=== PATIENT | female | born 1960 | race Caucasian/White ===

== ENCOUNTER → 2018-05-04 | Outpatient (CLI) | payer BC | LOC: RAD 15:21 | DX: E04.2 Nontoxic multinodular goiter (principal) ==

== ENCOUNTER 2018-07-03 20:56 | Observation (INO) | payer BC ==
[~2018-07-03] VITALS: Ht 167.6 cm; Wt 72.8 kg
[2018-07-03 21:42] LABS: HEMOGLOBIN 14.5 g/dL (12.5-16.0); MEAN CELL VOLUME 89 fl (78-100); MEAN CORPUSCULAR HEMOGLOBIN 31 pg (27-31); MEAN CORPUSCULAR HGB CONC 35 g/dL (33-37); MEAN PLATELET VOLUME 11.1 fl (7.4-10.4); PLATELET COUNT 176 K/mm3 (130-400); RED BLOOD COUNT 4.73 M/mm3 (4.10-5.30); RED CELL DISTRIBUTION WIDTH 12.7 % (11.5-14.5); WHITE BLOOD COUNT 4.9 K/mm3 (4.8-10.8)
[2018-07-03 21:49] LABS: ALBUMIN 3.8 g/dL (3.5-5.0); CALCIUM 9.5 mg/dL (8.4-10.2); POTASSIUM 3.9 mmol/L (3.6-5.0); TOTAL PROTEIN 6.5 g/dL (6.3-8.2)
[2018-07-03 21:56] LABS: BAND 3 % (0-10); LYMPHOCYTE 9 % (20-51); MONOCYTE 3 % (3-10); NEUTROPHILS 85 % (42-75)
[2018-07-03 22:22] LABS: URINE APPEARANCE CLEAR; URINE BILIRUBIN NEGATIVE (NEGATIVE); URINE BLOOD 250 ery/uL (NEGATIVE); URINE COLOR YELLOW; URINE GLUCOSE NEGATIVE (NEGATIVE); URINE KETONE NEGATIVE (NEGATIVE); URINE LEUKOCYTE ESTERASE TRACE (NEGATIVE); URINE MUCUS PRESENT (NOT PRESENT); URINE NITRATE NEGATIVE (NEGATIVE); URINE PROTEIN(semi-quant) TRACE mg/dL (NEGATIVE); URINE UROBILINOGEN NORMAL (NORMAL)
[2018-07-03] MEDS ORDERED: PROTONIX TR40 M1 PO (22:26)
[2018-07-03] MEDS ORDERED: MYSOLINE50 M1 PO (22:26)
--- NOTE | 2018-07-04 02:30 | NUR ---
PATIENT ADMITTED TO OBSERVATION ROOM 306 AT THIS TIME. PATIENT TRANSFERS WITH STANDBY ASSIST ONLY AND HAS BATHROOM PRIVILAGES ORDERED. PATIENT DOES NOT APPEAR TO BE IN ANY OBVIOUS DISTRESS AT THIS TIME. PATIENT'S REMAINS AT BEDSIDE. PATIENT'S IV LEFT IN PLACE FOR NEW CONTINUOUS AND PRN MEDICATION ORDERS.
[2018-07-04 03:02] VITALS: BP 95/54
[2018-07-04 06:16] VITALS: BP 99/47
[2018-07-04 08:04] LABS: EOS % 0.5 % (1.0-5.0); HEMATOCRIT 39.6 % (37.0-47.0); HEMOGLOBIN 13.5 g/dL (12.5-16.0); MEAN CELL VOLUME 90 fl (78-100); MEAN CORPUSCULAR HEMOGLOBIN 31 pg (27-31); MEAN CORPUSCULAR HGB CONC 34 g/dL (33-37); MEAN PLATELET VOLUME 11.1 fl (7.4-10.4); MONO # 0.2 (0.20-0.80); NEU # 1.5 (1.40-6.50); PLATELET COUNT 147 K/mm3 (130-400); RED BLOOD COUNT 4.41 M/mm3 (4.10-5.30); RED CELL DISTRIBUTION WIDTH 12.8 % (11.5-14.5)
[2018-07-04 08:16] LABS: LYMPH# 0.3 (1.50-4.00)
--- NOTE | 2018-07-04 08:23 | NUR ---
REPORT GIVEN TO RIP Moraes RN.
[2018-07-04 08:27] LABS: ALBUMIN 3.3 g/dL (3.5-5.0); CALCIUM 8.8 mg/dL (8.4-10.2); POTASSIUM 4.5 mmol/L (3.6-5.0); TOTAL PROTEIN 5.8 g/dL (6.3-8.2)
--- NOTE | 2018-07-04 09:54 | NUR ---
PT FOUND RESTING IN BED. NS INFUSING IN RTAC. STATES HER STOMACH FEELS A LITTLE FLU LIKE BUT DENIES THE PAIN SHE WAS HAVING IN LOWER ABDOMIN. STATES SHE ATE JELLO FOR BREAKFAST AND TOLERATED IT WELL. HAS NOT BEEN UP TO THE BATHROOM THIS MORNING. NO OTHER NEEDS NOTED AT THIS TIME. WILL CONTINUE TO MONITOR.
[2018-07-04] MEDS ORDERED: PANTOPRAZOLE SO40 MG PO (10:50)
--- NOTE | 2018-07-04 11:00 | NUR ---
DISCHARGE INSTRUCTIONS DISCUSSED WITH PT, PT VERBALIZES UNDERSTANDING. IV DC'D WITHOUT DIFFICULTY. PT DENIES ANY OTHER NEEDS, DC'D HOME VIA AMBULATION.
[2018-07-04 11:11] VITALS: BP 115/60
== END 2018-07-04 11:30 | disposition home or self-care (01) ==
LOC: ED 20:56 → MED/SURG 07-04 02:21
PROVIDERS: ADMIT Family Medicine
DX: R10.13 Epigastric pain (principal); R74.8 Abnormal levels of other serum enzymes; R79.89 Other specified abnormal findings of blood chemistry; G25.0 Essential tremor; K21.9 Gastro-esophageal reflux disease without esophagitis; F17.200 Nicotine dependence, unspecified, uncomplicated; Z87.19 Personal history of other diseases of the digestive system; K44.9 Diaphragmatic hernia without obstruction or gangrene; R31.29 Other microscopic hematuria
CPT/HCPCS: C9113; G0378; J0595; J1885; J3010; J3490; J7030

== ENCOUNTER → 2018-07-08 | Outpatient (CLI) | payer BC ==
[2018-07-04 11:11] VITALS: BP 115/60
[~2018-07-08] MED LIST: MYSOLINE50 M1 PO; PANTOPRAZOLE SO40 MG PO; PROTONIX TR40 M1 PO
[2018-07-08 09:26] LABS: EOS # 0.1 (0.04-0.40); EOS % 1.8 % (1.0-5.0); HEMATOCRIT 42.8 % (37.0-47.0); HEMOGLOBIN 14.6 g/dL (12.5-16.0); LYMPH# 1.1 (1.50-4.00); MEAN CELL VOLUME 89 fl (78-100); MEAN CORPUSCULAR HEMOGLOBIN 31 pg (27-31); MEAN CORPUSCULAR HGB CONC 34 g/dL (33-37); MEAN PLATELET VOLUME 11.1 fl (7.4-10.4); MONO # 0.3 (0.20-0.80); NEU # 1.9 (1.40-6.50); PLATELET COUNT 209 K/mm3 (130-400); RED BLOOD COUNT 4.79 M/mm3 (4.10-5.30); RED CELL DISTRIBUTION WIDTH 12.8 % (11.5-14.5); WHITE BLOOD COUNT 3.3 K/mm3 (4.8-10.8)
[2018-07-08 09:57] LABS: PROTHROMBIN TIME 9.3 SECONDS (9.0-12.0)
[2018-07-08 09:59] LABS: ALBUMIN 3.9 g/dL (3.5-5.0); CALCIUM 9.3 mg/dL (8.4-10.2); POTASSIUM 4.5 mmol/L (3.6-5.0); TOTAL BILIRUBIN 0.6 mg/dL (0.2-1.3); TOTAL PROTEIN 6.8 g/dL (6.3-8.2)
[2018-07-09 09:44] LABS: HEPATITIS B CORE AB TOTAL Negative (()); HEPATITIS B SURFACE ANTIBODY <2.0 (()); HEPATITIS B SURFACE ANTIGEN Negative (Negative)
[2018-07-10 00:25] LABS: ANA SCREEN with REFLEX Negative (Negative)
== END ==
LOC: RAD 09:05
DX: Q44.6 Cystic disease of liver (principal); R10.9 Unspecified abdominal pain; R74.8 Abnormal levels of other serum enzymes; Z90.49 Acquired absence of other specified parts of digestive tract

== ENCOUNTER → 2018-07-17 | Outpatient (CLI) | payer BC ==
[2018-07-04 11:11] VITALS: BP 115/60
== END ==
LOC: LAB 07:16
DX: E78.1 Pure hyperglyceridemia (principal); E55.9 Vitamin D deficiency, unspecified

== ENCOUNTER 2019-09-27 08:40 | Emergency (ER) | payer BC ==
[2019-09-27 09:29] LABS: HEMATOCRIT 43.2 % (37.0-47.0); HEMOGLOBIN 14.5 g/dL (12.5-16.0); RED BLOOD COUNT 4.82 M/mm3 (4.10-5.30); RED CELL DISTRIBUTION WIDTH 13.2 % (11.5-14.5)
[2019-09-27 10:07] LABS: TROPONIN-I < 0.03 ng/mL (<0.030)
[2019-09-27 10:13] LABS: ALBUMIN 3.9 g/dL (3.5-5.0); POTASSIUM 4.1 mmol/L (3.5-5.1); SODIUM 140 mmol/L (136-145)
[2019-09-27 10:15] LABS: GLUCOSE 93 mg/dL (65-105); TOTAL PROTEIN 6.5 g/dL (6.4-8.3)
[2019-09-27 10:16] LABS: CARBON DIOXIDE 26 mmol/L (22-29)
[2019-09-27 10:17] LABS: TOTAL BILIRUBIN 0.5 mg/dL (0.2-1.2)
[2019-09-27 10:22] LABS: ALT/SGPT 49 U/L (0-55); LIPASE 30 U/L (8-78)
[2019-09-27 10:33] LABS: AST-SGOT 100 U/L (5-34)
[2019-09-27] MEDS ORDERED: NORCO 10-325 T1 EACH PO (11:25)
[2019-09-27] MEDS ORDERED: QUALITY CHOICE PO (11:25)
[2019-09-27 12:10] VITALS: BP 108/51
== END 2019-09-27 11:46 | disposition home or self-care (01) ==
LOC: ED 08:40
PROVIDERS: Family Medicine
DX: K44.9 Diaphragmatic hernia without obstruction or gangrene (principal); K21.9 Gastro-esophageal reflux disease without esophagitis
CPT/HCPCS: J2270

== ENCOUNTER → 2022-10-04 | Outpatient (CLI) | payer OTHER ==
[~2022-10-04] MED LIST changes: +NORCO 10-325 T1 EACH PO; +QUALITY CHOICE PO
== END ==
LOC: RAD 09:56
DX: K85.90 Acute pancreatitis without necrosis or infection, unspecified (principal)
CPT/HCPCS: Q9967